=== PATIENT | female | born 1990 | race Caucasian/White ===

== ENCOUNTER 2019-08-04 01:04 | Emergency (ER) | payer SELFPAY ==
[~2019-08-04] VITALS: Ht 154.9 cm; Wt 85.9 kg
[~2019-08-04 01:04] MED LIST: BC PILL PO; CPR500T PO; OXYC-309 PO
[2019-08-04] MEDS ORDERED: DEXAMETHASONE 10 MG/ML (DECADRON) 1 ML VIAL IM STA (01:22)
[2019-08-04] MEDS ORDERED: methylPREDNISolone 80 MG/ML (DEPO MEDROL) VIAL IM STA (01:22)
--- NOTE | 2019-08-04 01:28 | ED EENT ---
History of Present Illness General Chief Complaint: Ear Problems Stated Complaint: RIGHT EAR PAIN Source: patient History of Present Illness Date Seen by Provider: Aug 04, 2019 Time Seen by Provider: 01:11 Initial Comments 28 yo F presenting with pressure and pain in right ear that has been going on for over a week. She was seen in urgent care several times in the last week. She was placed on Ciprodex ear drops and cefdinir oral antibiotics. she went back and said she was not improving so they gave her Rocephin IM shot and then switched her to clindamycin oral antibiotics. She has been trying OTC meds for pain and pressure as well. She still was having pain and not having improvement in her pressure and pain in the right ear. The pain and pressure was bad enough this morning that she came to the ED at 1 am to be seen about it. She has chills and subjective fever. She has tried warm packs to her ear without improvement as well. Allergies and Home Medications Allergies Coded Allergies: Penicillins (Unverified Allergy, 10/13/11) Home Medications Ciprofloxacin 500 Mg Tablet, 1 TAB PO BID, (Reported) Oxycodone Hcl/Acetaminophen 1 Each Tablet, 1 EACH PO Q4 PRN, (Reported) TAKES FOR PAIN CONTROL [Bc Pill] , 1 TAB PO DAILY, (Reported) Patient Home Medication List Home Medication List Reviewed: Yes Review of Systems Review of Systems Constitutional: chills; No dizziness; fever (subjective) Eyes: No Symptoms Reported Ears: See HPI Nose: no symptoms reported Mouth: no symptoms reported Throat: no symptoms reported Respiratory: no symptoms reported Cardiovascular: no symptoms reported Gastrointestinal: no symptoms reported Musculoskeletal: no symptoms reported Skin: no symptoms reported Neurological: No Symptoms Reported Past Qfwjphx-Aibkwr-Kodnoz Hx Past Med/Social Hx: Reviewed Nursing Past Med/Soc Hx Patient Social History Recent Foreign Travel: No Contact w/Someone Who Travel: No Past Medical History Reproductive Disorders: No Physical Exam Vital Signs Vital Signs - First Documented 08/04/19 01:23 Temp 36.9 Pulse 74 Resp 18 B/P (MAP) 137/73 (94) Pulse Ox 100 O2 Delivery Room Air Height, Weight, BMI Height: '" Weight: lbs. oz. kg; BMI Method: General Appearance: WD/WN, moderate distress Eyes: bilateral eye PERRL, bilateral eye EOMI Ears: right ear discharge (cerumen and fluid in canal with swelling present), right ear swelling, right ear tenderness, right ear other (unable to visualize TM due to fluid and discharge with swelling in canal); left ear TM dull (with effusion); bilateral ear auricle normal Nose: normal inspection Mouth/Throat: normal mouth inspection Neurologic/Psychiatric: alert, oriented x 3 Skin: normal color, warm/dry Progress/Results/Core Measures Results/Orders My Orders Orders - CESAR NATION MD Dexamethasone Injection (Decadron Inject (08/04/19 01:22) Methylprednisolone Acetate Inj (Depo-Med (08/04/19 01:22) Rx-Hydrocodone/Apap 5-325 Mg (Rx-Vicodin (08/04/19 01:30) Medications Given in ED Current Medications Medications Dose Ordered Sig/Kathryn Route Start Time Stop Time Status Last Admin Dose Admin Acetaminophen/ Hydrocodone Bitart 1 ea Q4H PRN PO 08/04/19 01:30 08/04/19 01:45 DC 08/04/19 01:37 1 EA Vital Signs/I&O 08/04/19 08/04/19 01:23 01:41 Temp 36.9 36.9 Pulse 74 74 Resp 18 18 B/P (MAP) 137/73 (94) 137/73 (94) Pulse Ox 100 100 O2 Delivery Room Air Room Air Progress Progress Note : Progress Note Give steroid injections to help with swelling and pain. a take home pack of hydrocodone to help her rest tonight. Follow up with ENT/PCP for continued symptoms and give more time for the new antibiotic to work. Departure Impression Primary Impression: Right otitis media with effusion Disposition: HOME, SELF-CARE Condition: Stable Departure-Patient Inst. Decision time for Depature: 01:26 Referrals: ZOHRA LY MD, PAMELA R APRN (PCP) Primary Care Physician Patient Instructions: Ear Infections (Otitis Media) (DC), Serous Otitis Media (DC) Add. Discharge Instructions: Continue on the antibiotics you already have. Follow up with the ENT clinic for continued pressure and pain if the steroids are not improving your symptoms All discharge instructions reviewed with patient and/or family. Voiced understanding. CESAR NATION MD Aug 04, 2019 01:28
[2019-08-04] MEDS ORDERED: RX-HYDROCODONE/APAP 5/325 MG #4 TAB PK PO PRN (01:30)
[2019-08-04 01:41] VITALS: BP 137/73
== END 2019-08-04 01:41 | disposition home or self-care (01) ==
LOC: EDUNIT# 01:04 → ER FS 01:09
DX: H65.91 Unspecified nonsuppurative otitis media, right ear (principal); Z88.0 Allergy status to penicillin
CPT/HCPCS: 99284